=== PATIENT | male | born 1940 | race Caucasian/White ===

== ENCOUNTER → 2022-08-29 | Day surgery (SDC) | payer MEDICARE, OTHER ==
[~2022-08-29] MED LIST: Lidocaine 1% (PF) 30 ML VIAL ONE; PROPOFOL 200 MG/20 ML VIAL ONE
[2022-08-29 08:17] VITALS: BP 122/73; TEMP 97.7
== END ==
LOC: CSHSDC 07:31
PROVIDERS: ATTEND Specialist
DX: I48.91 Unspecified atrial fibrillation (principal); I34.0 Nonrheumatic mitral (valve) insufficiency; I10 Essential (primary) hypertension; Z79.01 Long term (current) use of anticoagulants; Z79.899 Other long term (current) drug therapy
CPT/HCPCS: 92960; 93005; 93010; 93312; J2001; J2704

== ENCOUNTER 2022-09-10 12:56 | Emergency (ER) | payer OTHER, MEDICARE | END 2022-09-10 15:56 | disposition home or self-care (01) | LOC: CSHERS 12:56 | DX: S42.211A Unspecified displaced fracture of surgical neck of right humerus, initial encounter for closed fracture (principal); W01.0XXA Fall on same level from slipping, tripping and stumbling without subsequent striking against object, initial encounter ==

== ENCOUNTER 2022-10-01 09:35 | Outpatient (CLI) | payer MEDICARE, OTHER ==
[2022-10-01 10:51] LABS: Hematocrit 39.6 % (38.8-50.0); Hemoglobin 13.3 g/dL (13.5-17.5); Mean Corpuscular HGB CONC 33.6 g/dL (32.0-36.0); Mean Corpuscular Hemoglobin 33.4 pg (27.0-33.0); Mean Corpuscular Volume 99.5 fl (81.2-95.1); Mean Platelet Volume 9.6 fl (7.4-10.4); Platelet Count 283 10x3/uL (150-450); RBC Distribution Width 13.6 % (11.5-14.5); Red Blood Cell (RBC) Count 3.98 10x6/uL (4.32-5.72); White Blood Cell (WBC) Count 7.4 10x3/uL (3.5-10.5)
[2022-10-01 11:00] LABS: Anion Gap 14 mmol/L (10-20); BUN (Urea Nitrogen) 26 mg/dL (8.4-25.7); Calc. Creatinine Clearance 0 mL/min (70-130); Calcium 8.8 mg/dL (7.8-10.44); Carbon Dioxide 23 mmol/L (23-31); Chloride 111 mmol/L (98-107); Estimated GFR 88; Glucose 109 mg/dL (83-110); Potassium 4.3 mmol/L (3.5-5.1); Sodium 144 mmol/L (136-145)
== END 2022-10-01 09:36 | disposition home or self-care (01) ==
LOC: CSHLAB 09:35
PROVIDERS: ATTEND Orthopaedic Surgery
DX: Z01.818 Encounter for other preprocedural examination (principal); S42.211A Unspecified displaced fracture of surgical neck of right humerus, initial encounter for closed fracture
CPT/HCPCS: 80048; 85027; 93005; 93010

== ENCOUNTER 2022-10-02 10:56 | Day surgery (SDC) | payer MEDICARE, OTHER ==
[2022-10-02 11:16] VITALS: BMI 19.8
[2022-10-02] MEDS ORDERED: PROPOFOL 60 ML ONE (12:30)
[2022-10-02] MEDS ORDERED: fentaNYL 50 mcg/mL 1 mL Vial ONE ×2 (12:31)
[2022-10-02] MEDS ORDERED: Lidocaine 1% PF 5 ML VIAL ONE (12:32)
[2022-10-02] MEDS ORDERED: Rocuronium Bromide 10 MG/ML (10ML VIAL) ONE (12:32)
[2022-10-02] MEDS ORDERED: Bupivacaine HCl 0.5%/Epinephrine 1:200,000/PF 30 ml Vial ONE (12:40)
[2022-10-02] MEDS ORDERED: CEFAZOLIN 2 GM VIAL ONE (12:40)
[2022-10-02] MEDS ORDERED: PHENYLEPHRINE-NS 100 MCG/ML 10 ML SYRINGE ONE ×2 (12:50→12:58)
[2022-10-02] MEDS ORDERED: Dexamethasone 4 mg/ml Vial ONE (13:25)
[2022-10-02] MEDS ORDERED: Ondansetron PF 4 MG/2 ML Vial ONE (13:26)
== END 2022-10-02 14:25 | disposition home or self-care (01) ==
LOC: CSHSDC 10:56
PROVIDERS: ATTEND Orthopaedic Surgery
PROC: 0PSC04Z Reposition Right Humeral Head with Internal Fixation Device, Open Approach (ICD-10-PCS; principal; 2022-10-02)
DX: S42.211A Unspecified displaced fracture of surgical neck of right humerus, initial encounter for closed fracture (principal); I48.91 Unspecified atrial fibrillation; F32.A Depression, unspecified; Z79.899 Other long term (current) drug therapy; W31.89XA Contact with other specified machinery, initial encounter
CPT/HCPCS: 23615; 73030; J3010; C1713; J1100; J2405; J2704; S0020; S0028